=== PATIENT | male | born 1990 | race Caucasian/White ===

== ENCOUNTER 2017-06-19 11:49 | Emergency (ER) | payer BC, MEDICAID, SELFPAY ==
[2017-06-19 11:50] VITALS: BP 142/87; PULSE 81; RESP 16; TEMP 37.3; O2SAT 99; BMI 20.1
--- NOTE | 2017-06-19 12:21 | RAD_ITS ---
STUDY: X-RAY - LEFT HAND REASON FOR EXAM: Male, 26 years old. Pain of the fifth metacarpal following injury. TECHNIQUE: 3 view(s) of the hand. COMPARISON: None. FINDINGS: Normal radiocarpal articulation. Normal distal radioulnar joint. Normal visualized carpal bones. Normal carpal articulations Normal carpometacarpal articulation of the thumb. Normal second through fifth carpometacarpal joints. Nondisplaced transverse fracture through the midportion of the fifth metacarpal with mild dorsal angulation. Normal metacarpophalangeal joint of the thumb. Normal interphalangeal joint of the thumb. Normal proximal and distal phalanges of the thumb. Normal metacarpophalangeal joints of the second through fifth fingers. Normal proximal and distal interphalangeal joints of the second through fifth fingers. Normal phalanges of the second through fifth fingers. Soft tissue swelling. RAD/Hand Min 3 Views IMPRESSION: Nondisplaced transverse fracture in the midportion of the fifth metacarpal with mild dorsal angulation and overlying soft tissue swelling. Electronically Signed: Patrick Sherwood MD at 12:43 EST Tel [phone], Service support ,
--- NOTE | 2017-06-19 13:16 | ED.DCSUM_ITS ---
- ER Visit Summary Date of Service: 06/19/17 Chief Complaint: [Injury left hand] History of Present Illness: The patient is a 26 M [presents the emergency department with an injury of his left hand that occurred this morning after he was upset and punched a wall with his left hand. Patient is left-hand dominant. Patient denies any other injuries. Patient denies prior fractures of that hand.] Physical Examination: [Left hand-patient has soft tissue swelling over the dorsum of the fifth metacarpal with ecchymosis noted. Patient has decreased ability to completely extend the left small finger and ring finger. He is neurovascular intact with normal station and cap refill.] Test Results: [X-rays of the left hand obtained showed a fracture through the midportion of the fifth metacarpal] Emergency Department Course and Treatment: [Patient was placed in an ulnar gutter splint and given a sling.] Treatment Plan: [Patient will be given a prescription for [place] for pain and instructed to ice and elevate extremity. Patient will be given work restrictions.] Disposition: [Discharged to home in stable condition. Patient will be referred to Dr. Cesar Billingsley who is on-call for orthopedics for follow-up in 3-5 days.] Impression: [Fracture left hand fifth metacarpal] This note was generated with [employer] dictation software. It may contain incorrect words, spelling, and punctuation that were not noted in review of the chart prior to signing ED Disposition - Plan for ED Patient: Chief Complaint: Upper Extremity Injury Referrals: Gurdeep Lowery MD [Primary Care Provider] -
--- NOTE | 2017-06-19 13:18 | DCINST.ED_ITS ---
ED Disposition - Plan for ED Patient: Chief Complaint: Upper Extremity Injury Instructions: ED Fx Boxer Prescriptions: Hydrocodone Bitart/Apap 5-325 [[place] 5/325] 1 - 2 tab PO Q4H PRN PRN 5 Days #20 tab PRN Reason: Pain Referrals: Gurdeep Lowery MD [Primary Care Provider] - Rajesh Billingsley MD [STAFF PHYSICIAN] - 3-5 Days
[2017-06-19 13:40] VITALS: BP 140/88
--- NOTE | 2017-06-19 13:40 | ED.RN ---
Work note given for no left hand/arm duties, no repetitive motion to left arm until f/y with ortho.
--- NOTE | 2017-06-19 13:41 | ED.RN ---
Pt states he doesn't drive and is off work until Friday.
== END 2017-06-19 13:41 | disposition home or self-care (01) ==
PROVIDERS: Emergency Provider Emergency Medicine; Family Provider Pediatrics; PCP Pediatrics
DX: S62.397A Other fracture of fifth metacarpal bone, left hand, initial encounter for closed fracture (principal); W22.8XXA Striking against or struck by other objects, initial encounter; Y93.89 Activity, other specified; Y92.9 Unspecified place or not applicable; Z72.0 Tobacco use
CPT/HCPCS: 29125; 73130; 99283

== ENCOUNTER 2017-11-26 23:42 | Emergency (ER) | payer BC, MEDICAID, SELFPAY ==
[2017-11-26 23:44] VITALS: BP 143/86; PULSE 99; RESP 18; TEMP 36.6; O2SAT 98; BMI 20.4
[2017-11-27] MEDS: Diphth,Pertuss(Acell),Tet Vac 0.5 ML Vial IM (00:07)
--- NOTE | 2017-11-27 00:19 | ED.DCSUM_ITS ---
- ER Visit Summary Date of Service: 11/27/17 Chief Complaint: Laceration History of Present Illness: The patient is a 27 M who cut his left hand when washing dishes today. Unsure of tetanus status. No other injuries. Physical Examination: There is a 1 cm laceration on his left hand at the radial side of the index finger MCP joint. He is neurovascular intact distally. Good extension and flexion. Joint is not involved. Test Results: None indicated Emergency Department Course and Treatment: Wound was anesthetized locally. Cleaned and explored. Closed with 3 simple interrupted sutures. He was given wound care instructions. Return for signs of infection. Follow-up in about 10 days for suture removal. Tetanus updated Treatment Plan: As above Disposition: Discharged Impression: 1. Laceration to left hand 1 cm This note was generated with [employer] dictation software. It may contain incorrect words, spelling, and punctuation that were not noted in review of the chart prior to signing ED Disposition - Plan for ED Patient: Chief Complaint: Laceration Referrals: Gurdeep Lowery MD [Primary Care Provider] -
--- NOTE | 2017-11-27 00:19 | ED.DEP ---
ED Disposition - Plan for ED Patient: Chief Complaint: Laceration Instructions: ED Laceration Hand Referrals: Gurdeep Lowery MD [Primary Care Provider] -
--- NOTE | 2017-11-27 00:28 | ED.RN ---
pt given written and verbal discharge instructions. pt reports understanding. wound covered with bacitracin and a bandaid. pt tolerated well. ambulatory out of dept with friends.
== END 2017-11-27 00:32 | disposition home or self-care (01) ==
LOC: ED 11-27 00:19
PROVIDERS: Emergency Provider Emergency Medicine; Family Provider Pediatrics; PCP Pediatrics
DX: S61.211A Laceration without foreign body of left index finger without damage to nail, initial encounter (principal); W45.8XXA Other foreign body or object entering through skin, initial encounter; Y93.89 Activity, other specified; Y92.9 Unspecified place or not applicable; Y99.9 Unspecified external cause status; Z72.0 Tobacco use
CPT/HCPCS: 12001; 90471; 90715; 99283

== ENCOUNTER 2017-12-02 00:05 | Emergency (ER) | payer BC, MEDICAID, SELFPAY ==
[2017-12-02 00:06] VITALS: BP 141/77; PULSE 120; RESP 18; TEMP 37.2; O2SAT 97
--- NOTE | 2017-12-02 00:21 | RAD_ITS ---
STUDY: X-RAY - LEFT HAND REASON FOR EXAM: Male, 27 years old. Pain fifth metatarsal after punching refrigerator. TECHNIQUE: 3 view(s) of the hand. COMPARISON: June 19, 2017 FINDINGS: Normal radiocarpal articulation. Normal distal radioulnar joint. Normal visualized carpal bones. Normal carpal articulations Normal carpometacarpal articulation of the thumb. Normal second through fifth carpometacarpal joints. There is a transverse mildly displaced fracture mid shaft of the fifth metacarpal with apex dorsal medial angulation. On the prior exam there was a fracture in this same location. On the present exam there is thickening of the cortex medial aspect of the mid shaft suggestive of healing. The present findings probably represent a new fracture through an area healed fracture. Normal metacarpophalangeal joint of the thumb. Normal interphalangeal joint of the thumb. Normal proximal and distal phalanges of the thumb. Normal metacarpophalangeal joints of the second through fifth fingers. Normal proximal and distal interphalangeal joints of the second through fifth fingers. Normal phalanges of the second through fifth fingers. The soft tissue structures are unremarkable. RAD/Hand Min 3 Views IMPRESSION: Transverse fracture midshaft of the fifth metacarpal. The fracture is in the same location as a fracture noted on the study of May 2017. The findings either represent a new fracture at the same site or an incompletely healed old fracture. Electronically Signed: Jim Rubin MD at 1:38 EDT , Service support ,
--- NOTE | 2017-12-02 03:00 | ED.RN ---
EXPLAINED TO PT AND S.O. THAT THE PHYSICIAN WOULD BE IN WITH THEM SOON HE COULD. INFORMED THEM THAT HE WAS TIED UP WITH A COUPLE CRITICAL PATIENT AND HE WAS WORKING ON GETTING IN TO SEE HIM. PT STATED HE HAD TO GO TO WORK. ALSO EXPLAINED THE IMPORTANCE OF HAVING HIS HAND SPLINTED. PT WASN'T CONCERNED. PT ENDED UP AMBULATING FROM ER WITHOUT TALKING TO ANYONE.
--- NOTE | 2017-12-02 04:45 | ED.VISSUMM ---
- ER Visit Summary Date of Service: 12/02/17 Chief Complaint: Patient presents with injury to left hand. History of Present Illness: The patient is a 27 M who is left-hand dominant presents with injury to his left hand after striking refrigerator. He was diagnosed with boxer fracture 2 months ago and seen by Dr. Cesar Billingsley. He denies any paresthesia, anesthesia buttocks. He complains of pain with movement of his ring and little finger. He has no other complaints. Physical Examination: There is pain palpation over the fifth metacarpal. There is no rotational malalignment of the left little or ring finger. Capillary refill is normal. Sensations intact. Extensor and flexor mechanism is intact. There is no pain the patient of the proximal, middle or distal phalanx third, fourth or fifth finger. Test Results: Three-view x-ray of the hand was obtained which reveals a transverse fracture midshaft fifth metacarpal with 15-20? dorsal apex angulation. Emergency Department Course and Treatment: X-ray was obtained to evaluate for fracture and to determine if reduction is required. Treatment Plan: Patient was informed he had a fracture. Patient was informed that a hematoma block was needed to anesthetize area for reduction and application of plaster splint. Patient was informed I was with multiple critical patients. In spite of this he left prior to application of splint. Disposition: Left prior to completion of treatment Impression: Transverse midshaft fifth metacarpal fracture with angulation This note was generated with [employer] dictation software. It may contain incorrect words, spelling, and punctuation that were not noted in review of the chart prior to signing ED Disposition - Plan for ED Patient: Disposition: Against Medical Advice Chief Complaint: Upper Extremity Injury Referrals: Gurdeep Lowery MD [Primary Care Provider] -
== END 2017-12-02 03:14 | disposition left against medical advice (07) ==
PROVIDERS: Emergency Provider Emergency Medicine; Family Provider Pediatrics; PCP Pediatrics
DX: S62.327A Displaced fracture of shaft of fifth metacarpal bone, left hand, initial encounter for closed fracture (principal); W22.8XXA Striking against or struck by other objects, initial encounter; Y93.89 Activity, other specified; Y92.9 Unspecified place or not applicable; Z53.21 Procedure and treatment not carried out due to patient leaving prior to being seen by health care provider; Z72.0 Tobacco use
CPT/HCPCS: 73130; 99281

== ENCOUNTER 2018-05-02 15:59 | Emergency (ER) | payer BC, MEDICAID, SELFPAY ==
[2018-05-02 16:00] VITALS: BP 140/80; PULSE 115; RESP 18; TEMP 36.8; O2SAT 100; BMI 22.0
--- NOTE | 2018-05-02 16:33 | ED.VISSUMM ---
- ER Visit Summary Date of Service: 05/02/18 Chief Complaint: Right thumb laceration History of Present Illness: The patient is a 27 M who cut his right thumb with a razor blade just prior to arrival. He is left-hand dominant. Tetanus is up-to-date. He does report some paresthesias to the right thumb which seem to be improving since the time of injury. Physical Examination: Vital signs significant only for heart rate of 115. Patient sitting upright in bed no acute distress. Right upper extremity examination reveals a 1.5 cm laceration at the base of the right thumb along the ulnar side. There is mild active bleeding. He has good cap refill distally and two-point discrimination is intact. Test Results: [] Emergency Department Course and Treatment: Digital block is performed with 3 cc 1% lidocaine. Wound is irrigated and skin is closed with 5 simple interrupted sutures of 5-0 nylon. Dressing is applied and wound care is discussed. Patient is to have sutures removed in 1 week. Treatment Plan: [] Disposition: Discharge Impression: Right thumb laceration status post suture This note was generated with [employer] dictation software. It may contain incorrect words, spelling, and punctuation that were not noted in review of the chart prior to signing ED Disposition - Plan for ED Patient: Chief Complaint: Laceration Referrals: Gurdeep Lowery MD [Primary Care Provider] -
--- NOTE | 2018-05-02 16:34 | ED.DEP ---
ED Disposition - Plan for ED Patient: Disposition: Home or Assisted Living Chief Complaint: Laceration Instructions: ED Laceration Hand Referrals: Kellie Reyes MD [STAFF PHYSICIAN] - 7 Days for suture removal
== END 2018-05-02 17:08 | disposition home or self-care (01) ==
LOC: ED 16:54
PROVIDERS: Emergency Provider Emergency Medicine
DX: S61.011A Laceration without foreign body of right thumb without damage to nail, initial encounter (principal); W26.8XXA Contact with other sharp object(s), not elsewhere classified, initial encounter; Z72.0 Tobacco use
CPT/HCPCS: 12001; 99282

== ENCOUNTER 2018-12-28 08:32 | Emergency (ER) | payer MEDICAID, SELFPAY ==
[2018-12-28 08:33] VITALS: BP 117/67; PULSE 105; RESP 16; TEMP 36.7; O2SAT 99; BMI 21.6
--- NOTE | 2018-12-28 08:56 | CT_ITS ---
STUDY: CT ABDOMEN AND PELVIS WITH CONTRAST REASON FOR EXAM: Male, 28 years old. Umbilical pain with nausea, vomiting and diarrhea x1 day. RADIATION DOSAGE (If Supplied By Facility): CTDIvol = ( 11.32 ) mGy, DLP = ( 474.94 ) mGycm TECHNIQUE: Transaxial 3.75 mm images were obtained from the dome of the diaphragm to the symphysis pubis with oral contrast. 100 IV/Oral Isovue 370 was administered. Sagittal and coronal images were reconstructed. Individualized dose optimization techniques were used for this CT. COMPARISON: None. FINDINGS: The visualized lung bases are unremarkable. The visualized portions of the heart are within normal limits. Normal liver. Normal gallbladder and extrahepatic biliary system. Normal spleen. Normal pancreas. Normal bilateral adrenal glands. Normal right kidney. Normal left kidney. Oral contrast is reaching the hepatic flexure. Normal visualized stomach. Normal small intestine. Normal colon. The appendix is visualized and appears normal. Image [id number] series 2. There are a few indistinct borderline sized mesenteric lymph nodes. Normal abdominal aorta. Normal inferior vena cava. Normal retroperitoneum. Normal urinary bladder. Normal abdominal wall. Normal osseous structures. CT/Abdomen/Pelvis WITH Contrast IMPRESSION: Possible mild mesenteric adenitis. There is no appendicitis, colitis, ascites, diverticulitis, abscess, collection, perforation or bowel obstruction. Electronically Signed: Kaylene Nogueira MD at 10:56 EDT , Service support ,
--- NOTE | 2018-12-28 08:57 | ED.VIS.GI ---
History of Present Illness Chief Complaint: Nausea/Vomiting Detail of Chief Complaint: n/v and abd pain Informant: Patient, Family - Abdominal Pain/Flank Pain Onset: Yesterday - around 12-13 hrs Context: Gradual Onset - after eating cottage cheese Timing: Continuous Quality: Aching Location: - - lower abd Current Severity: Moderate Maximum Severity: Moderate Worsened by: Food Relieved by: Nothing - Nausea/Vomiting/Emesis GI Symptom: Nausea, Vomiting Onset: Yesterday Quality: Nonbilious. Negative for: Blood streaks, Coffee ground, Hematemesis - Diarrhea/Melena/Hematochezia GI Symptom: Diarrhea. Negative for: Melena, Hematochezia Onset: Today - JPTA Associated Symptoms: Negative for: Dysuria, Frequency, Hematuria, Urgency Narrative: The day before yesterday, patient was drinking alcohol but stopped at 6 PM. He did not eat much all day yesterday, until 8 PM last night when he had some cottage cheese, then he felt sick and vomited, and started getting lower abdominal discomfort that progressed in severity to this morning. He had dry heaving for 15 or 20 minutes this morning and still feels nauseated. He has no upper abdominal discomfort, it is lower and more to the right. He does not think it has migrated. He denies any radiation into the back. No known fevers. He had a large bout of diarrhea that did not really help the pain just prior to arrival here. He is healthy otherwise and has had no prior abdominal surgeries. Past Medical History - Allergies and Home Meds Allergies/Adverse Reactions: Allergies Fish Containing Products Allergy (Verified 12/28/18 08:32) Anaphylaxis Penicillins Allergy (Verified 12/28/18 08:32) Hives Primary Care Physician: Care Physician,No Primary [Primary Care Provider] - Past Medical History: None Surgical History: no surgical history Smoking Status: Current every day smoker Alcohol: Occasional Drugs: None Review of Systems General: Reports: Malaise. Denies: Chills, Fever, Sweats Eyes: Denies: Visual changes - bilaterally, Diplopia ENT: Denies: Rhinorrhea, Sore throat Cardiovascular: Denies: Chest pain, Palpitations Respiratory: Denies: Dyspnea, Cough, Dyspnea on exertion Gastrointestinal: Reports: Abdominal pain, Nausea, Vomiting, Diarrhea. Denies: Melena, Hematochezia Genitourinary: Denies: Dysuria, Hematuria, Frequency Musculoskeletal: Denies: Back pain, Extremity Pain Skin: Denies: Rash, Wounds Neurological: Denies: Headache, Weakness, Numbness Physical Exam Vital Signs/Narrative: Vital Signs Temp Pulse Resp BP Pulse Ox 12/28/18 08:33 98.0 F 105 H 16 117/67 99 Inital Vital Signs reviewed: Yes General: Well nourished, Well developed, No Acute Distress Head: Normocephalic, Atraumatic Eyes: Perrl, EOMI ENT: Moist mucous membranes, No rhinorrhea Neck: Supple, Nontender Cardiovascular: Regular rate, Regular rhythm, No murmurs, Tachycardia - mild Respiratory: No distress, CTA bilaterally, Chest tenderness - Mild at lower-most bilateral ribs, worse on the right, anterior axillary line Abdomen: Soft, Nondistended, Normal bowel sounds, Tender - Right lower quadrant, somewhat distal and medial to McBurney's point, suprapubic. No other areas of abdominal tenderness.. Negative for: Guarding, Rebound tenderness, Psoas sign, Obturator sign, Rovsig's sign, López's sign Back: Nontender, Normal Inspection. Negative for: CVA tenderness Extremities: Nontender, No edema Skin: Normal color, No rash, No Trauma Neurological: Alert, Oriented x3, Cranial nerves II-XII grossly intact, Normal Strength, Normal Sensation Psychological: Normal affect, Normal Mood Diagnostic/Tx/Re-eval Impressions Abdomen/Pelvis CT 12/28/18 08:56 IMPRESSION: Possible mild mesenteric adenitis. There is no appendicitis, colitis, ascites, diverticulitis, abscess, collection, perforation or bowel obstruction. Electronically Signed: Kaylene Nogueira MD at 10:56 EDT , Service support , 12/28/18 08:56 Abdomen/Pelvis WITH Contrast [CT] Stat Laboratory Results 12/28/18 12/28/18 09:14 09:14 WBC 5.1 RBC 5.98 Hgb 18.1 H* Hct 53.0 MCV 88.6 MCH 30.3 MCHC 34.2 RDW Std Deviation 40.9 RDW Coeff of Fred 12.5 Plt Count 235 MPV 10.7 Immature Gran % (Auto) 0.200 Neut % (Auto) 73.9 H Lymph % (Auto) 15.2 L Kingfisher % (Auto) 9.7 Eos % (Auto) 0.6 Baso % (Auto) 0.4 Absolute Neuts (auto) 3.7 Absolute Lymphs (auto) 0.77 L Nucleated RBC % 0 [address] Path Review May foll Sodium 137 Potassium 3.8 Chloride 101 Carbon Dioxide 31.0 Anion Gap 5 BUN 20 H Creatinine 1.38 H Estim Creat Clear Calc 80.67 Est GFR (MDRD) Af Amer 80 Est GFR (MDRD) Non-Af 66 BUN/Creatinine Ratio 14.5 Glucose 124 H Calcium 9.5 Total Bilirubin 0.60 AST 16 ALT 22 Alkaline Phosphatase 68 Total Protein 7.9 Albumin 4.2 Globulin 3.7 Albumin/Globulin Ratio 1.1 - Medical Decision Making He has no leukocytosis, his hemoglobin is high possibly because of mild dehydration and the fact that he is a healthy 28-year-old. I obtained a CT with oral and IV contrast because he is thin, to rule out appendicitis, it is negative for appendicitis or any other emergent abdominal condition, the interpretation is possible mild mesenteric adenitis. At this time I think the patient is stable for discharge home and symptom control, which we did here as well. He is comfortable with that plan. He has no PCP. Referred to the next doctor on the list, Dr. Serrano. ED Disposition - Plan for ED Patient: Disposition: Home or Assisted Living Diagnosis: Mesenteric adenitis Instructions: Adenitis, Mesenteric Prescriptions: traMADol [Ultram] 50 mg PO Q4H PRN PRN 3 Days #12 tab PRN Reason: Pain Prescription Printed Ondansetron [Zofran] 8 mg PO Q8H PRN PRN #12 tab PRN Reason: Nausea Prescription Printed Referrals: Patrick Serrano DO [STAFF PHYSICIAN] - 1 Week if not improving
[2018-12-28] MEDS: 0.9% Normal Saline 1,000 ML 1000 ML IV (09:13)
[2018-12-28] MEDS: Ondansetron 4 MG/2 ML Vial IV (09:14)
[2018-12-28] MEDS: Ketorolac 30 MG/ML Syringe 15 MG IV (09:14)
[2018-12-28 09:29] LABS: Absolute Lymphocyte Count 0.77 X10^3/uL (0.83-4.51); Absolute Neutrophil Count 3.7 X10^3/uL (2.0-7.7); Basophil# 0.02 X10^3/uL; Basophil% 0.4 % (0-1); Eosinophil# 0.03 X10^3/uL; Eosinophils% 0.6 % (0-5); Lymphocyte # 0.77 X10^3/ul (4.0); Lymphocyte % 15.2 % (19-41); Mean Corp Hgb Conc 34.2 g/dL (32-36); Mean Corpuscular Hgb 30.3 pg (27.0-32.0); Mean Corpuscular Volume 88.6 fL (80-94); Mean Platelet Vol. 10.7 fl (6.2-12.0); Monocyte# 0.49 X10^3/uL; Monocyte% 9.7 % (0-10); NRBC Flagged by Analyzer 0 % (0-5); Neutrophil # 3.73 X10^3/uL (2.7-7.7); Neutrophil % 73.9 % (47-70); Platelet Count 235 K/mm3 (150-450); RBC Distribution Width CV 12.5 % (11.6-14.6); RBC Distribution Width SD 40.9 fl (35.1-43.9); Red Blood Count 5.98 M/mm3 (4.6-6.2); White Blood Count 5.1 K/mm3 (4.4-11.0)
[2018-12-28 09:34] LABS: Hemoglobin 18.1 g/dL (13.0-16.5)
--- NOTE | 2018-12-28 09:39 | ED.RN ---
lab called zaira peraza 18.[address] french made aware, pt has no further needs at this time.
[2018-12-28 09:40] LABS: ALB/GLOB Ratio 1.1 RATIO (0.9-2.4); AST(SGOT) 16 U/L (15-37); Alanine Aminotransfer ALT/SGPT 22 U/L (16-61); Albumin, Serum 4.2 g/dL (3.2-5.0); Alkaline Phosphatase 68 U/L (45-117); Anion Gap 5 (5-15); BUN 20 mg/dL (7-18); BUN/Creat Ratio 14.5 RATIO (10-20); Calcium,Total 9.5 mg/dL (8.5-10.1); Chloride 101 mmol/L (98-107); Creatinine, Serum 1.38 mg/dL (0.70-1.30); EST Glomerular Filtration Rate 66 mL/min (>60); Est Glom Filt Rate - Afr Amer 80 mL/min (>60); Estimated Creatinine Clearance 80.67 ml/min; Globulin 3.7 g/dL (2.2-4.2); Glucose 124 mg/dL (74-106); Potassium 3.8 mmol/L (3.5-5.1); Protein, Total 7.9 g/dL (6.4-8.2); Sodium Level 137 mmol/L (136-145)
[2018-12-28 11:15] VITALS: RESP 18
[2018-12-28 11:24] LABS: Bacteria 0 SEEN /hpf (None Seen); Mucous, Urine 0 SEEN /hpf (<or=2+); Red Blood Cells-Urine 0 SEEN /hpf (0-5); Squamous Epithelial Cells - UA 0 SEEN /hpf (0-5); White Blood Cells 0 SEEN /hpf (0-5)
[2018-12-28 11:25] LABS: Color, Urine Yellow (Yellow); Glucose, Dipstick Normal (Normal); Ketone-Dipstick Negative (Negative); Leukocyte Esterase-Dipstick Negative /ul (Negative); Nitrite-Dipstick Negative (Negative); Occult Blood-Urine Negative /ul (Negative); Protein-Dipstick 30 mg/dl (Negative); Specific Gravity, Urine 1.005 (1.002-1.030); Urine Bilirubin Dipstick Negative (Negative); Urine Clarity Clear (Clear); Urine Urobilinogen 1 mg/dl (Normal)
[2018-12-29 12:32] LABS: Pathologist Review Reviewed
== END 2018-12-28 12:22 | disposition home or self-care (01) ==
PROVIDERS: Emergency Provider Emergency Medicine
DX: I88.0 Nonspecific mesenteric lymphadenitis (principal); F17.200 Nicotine dependence, unspecified, uncomplicated
CPT/HCPCS: 74177; 80053; 81001; 85025; 96361; 96374; 96375; 99284; J7030; Q9967; A4216; J2405

== ENCOUNTER 2019-01-05 09:58 | Emergency (ER) | payer BC, MEDICAID, SELFPAY ==
[2019-01-05 10:01] VITALS: BP 129/87; PULSE 97; RESP 16; TEMP 36.5; O2SAT 98; BMI 21.6
--- NOTE | 2019-01-05 10:14 | ED.DCSUM_ITS ---
History of Present Illness Chief Complaint: Abd Pain Informant: Patient Onset: Days Context: Gradual Onset Timing: Continuous Current Severity: Moderate Maximum Severity: Moderate Narrative: The patient presents to the emergency department with abdominal pain diarrhea. Patient was seen here 8 days ago. At that point, he was having abdominal cramping that had migrated to his right lower quadrant. He had labs done which showed mild dehydration. His CT shows no evidence of acute appendicitis, but did have some mesenteric adenitis. He states he felt better for a few days, but then the symptoms came back. He states he is continuing to have diarrhea and abdominal cramping. He states he will get spasms through his abdomen that almost doubled him over. He denies any fevers, chills, weight loss, night sweats. He is otherwise been in his normal state of health. He denies any recent travel. Prior similar symptoms: Yes Recent Illness/Hospitalization: No Past Medical History - Allergies and Home Meds Allergies/Adverse Reactions: Allergies Fish Containing Products Allergy (Verified 01/05/19 10:01) Anaphylaxis Penicillins Allergy (Verified 01/05/19 10:01) Mya Primary Care Physician: Care Physician,No Primary [Primary Care Provider] - Prior records reviewed: Yes Past Medical History: None Surgical History: no surgical history Smoking Status: Current every day smoker Review of Systems General: Denies: Chills, Fever, Sweats Eyes: Denies: Visual changes - bilaterally, Diplopia ENT: Denies: Rhinorrhea, Sore throat Cardiovascular: Denies: Chest pain, Palpitations Respiratory: Denies: Dyspnea, Cough, Dyspnea on exertion Gastrointestinal: Reports: Abdominal pain, Diarrhea. Denies: Nausea, Vomiting, Melena, Hematochezia Genitourinary: Denies: Dysuria, Hematuria, Frequency Musculoskeletal: Denies: Back pain, Extremity Pain Skin: Denies: Rash, Wounds Neurological: Denies: Headache, Weakness, Numbness Physical Exam Vital Signs/Narrative: Vital Signs Temp Pulse Resp BP Pulse Ox 01/05/19 10:01 97.7 F L 97 16 129/87 H 98 Inital Vital Signs reviewed: Yes General: Well nourished, Well developed, No Acute Distress Head: Normocephalic, Atraumatic Eyes: Perrl, EOMI ENT: Moist mucous membranes, No rhinorrhea Neck: Supple, Nontender Cardiovascular: Regular rate, Regular rhythm, No murmurs Respiratory: No distress, CTA bilaterally, Chest nontender Abdomen: Soft, Nondistended, Normal bowel sounds, Tender - Suprapubic area without rebound or guarding. No peritoneal signs.. Negative for: Guarding, Rebound tenderness, Hyperactive bowel sounds Back: Nontender, Normal Inspection Extremities: Nontender, No edema Skin: Normal color, No rash Neurological: Alert, Oriented x3, Cranial nerves II-XII grossly intact, Normal Strength, Normal Sensation Psychological: Normal affect, Normal Mood Diagnostic/Tx/Re-eval Abnormal Lab Results 01/05/19 01/05/19 10:25 10:25 WBC 5.6 RBC 5.93 Hgb 17.8 H Hct 52.9 MCV 89.2 MCH 30.0 MCHC 33.6 RDW Std Deviation 42.4 RDW Coeff of Fred 13.0 Plt Count 419 MPV 9.9 Immature Gran % (Auto) 0.200 Neut % (Auto) 54.4 Lymph % (Auto) 32.5 Sawyer % (Auto) 10.4 H Eos % (Auto) 2.0 Baso % (Auto) 0.5 Absolute Neuts (auto) 3.1 Absolute Lymphs (auto) 1.82 Nucleated RBC % 0 Sodium 139 Potassium 4.4 Chloride 103 Carbon Dioxide 30.0 Anion Gap 6 BUN 11 Creatinine 1.37 H Estim Creat Clear Calc 81.26 Est GFR (MDRD) Af Amer 81 Est GFR (MDRD) Non-Af 67 BUN/Creatinine Ratio 8.0 L Glucose 99 Calcium 10.3 H Total Bilirubin 1.40 H AST 19 ALT 33 Alkaline Phosphatase 62 Total Protein 8.2 Albumin 4.4 Globulin 3.8 Albumin/Globulin Ratio 1.2 - Medical Decision Making The patient presents to the emergency department with persistent cramping. He is not tender over McBurney's point. He has a negative López sign also. States the pain comes in waves. IV was established. Labs were obtained. His creatinine is unchanged. Otherwise, screening labs are unremarkable. I really do not feel that repeat imaging is necessary. My only concern is that the patient has had these symptoms for 10 days now with persistent diarrhea. He has not had a fever. I do feel that the most prudent thing would be to treat him with 3 days of Cipro and antispasmodics. Patient was counseled concerning symptoms and reasons to return. He will be discharged home. 1. Diarrhea 2. Abdominal cramping ED Disposition - Plan for ED Patient: Instructions: TRAVELER'S DIARRHEA (8y-Adult) Prescriptions: Dicyclomine HCl [Bentyl] 20 mg PO TIDAC #20 cap Prescription Printed Ciprofloxacin [Cipro] 500 mg PO BID #6 tab Prescription Printed Referrals: Care Physician,No Primary [Primary Care Provider] -
[2019-01-05] MEDS: 0.9% Normal Saline 1,000 ML 1000 ML IV (10:37)
[2019-01-05] MEDS: Ondansetron 4 MG/2 ML Vial IV (10:39)
[2019-01-05] MEDS: Ketorolac 15 MG/ML Vial IV (10:39)
[2019-01-05 10:40] LABS: Absolute Lymphocyte Count 1.82 X10^3/uL (0.83-4.51); Absolute Neutrophil Count 3.1 X10^3/uL (2.0-7.7); Basophil# 0.03 X10^3/uL; Basophil% 0.5 % (0-1); Eosinophil# 0.11 X10^3/uL; Hematocrit 52.9 % (40-54); Hemoglobin 17.8 g/dL (13.0-16.5); Lymphocyte # 1.82 X10^3/ul (4.0); Lymphocyte % 32.5 % (19-41); Mean Corp Hgb Conc 33.6 g/dL (32-36); Mean Corpuscular Volume 89.2 fL (80-94); Mean Platelet Vol. 9.9 fl (6.2-12.0); Monocyte# 0.58 X10^3/uL; Monocyte% 10.4 % (0-10); NRBC Flagged by Analyzer 0 % (0-5); Neutrophil # 3.05 X10^3/uL (2.7-7.7); Neutrophil % 54.4 % (47-70); Platelet Count 419 K/mm3 (150-450); RBC Distribution Width SD 42.4 fl (35.1-43.9); Red Blood Count 5.93 M/mm3 (4.6-6.2); White Blood Count 5.6 K/mm3 (4.4-11.0)
[2019-01-05 11:00] VITALS: TEMP 36.5
[2019-01-05 11:03] LABS: ALB/GLOB Ratio 1.2 RATIO (0.9-2.4); AST(SGOT) 19 U/L (15-37); Alanine Aminotransfer ALT/SGPT 33 U/L (16-61); Albumin, Serum 4.4 g/dL (3.2-5.0); Alkaline Phosphatase 62 U/L (45-117); Anion Gap 6 (5-15); BUN 11 mg/dL (7-18); Calcium,Total 10.3 mg/dL (8.5-10.1); Chloride 103 mmol/L (98-107); Creatinine, Serum 1.37 mg/dL (0.70-1.30); EST Glomerular Filtration Rate 67 mL/min (>60); Est Glom Filt Rate - Afr Amer 81 mL/min (>60); Estimated Creatinine Clearance 81.26 ml/min; Globulin 3.8 g/dL (2.2-4.2); Glucose 99 mg/dL (74-106); Potassium 4.4 mmol/L (3.5-5.1); Protein, Total 8.2 g/dL (6.4-8.2); Sodium Level 139 mmol/L (136-145)
[2019-01-05 11:51] LABS: Bacteria 0 SEEN /hpf (None Seen); Mucous, Urine 0 SEEN /hpf (<or=2+); Red Blood Cells-Urine 0 SEEN /hpf (0-5); Squamous Epithelial Cells - UA 0 SEEN /hpf (0-5)
[2019-01-05 11:54] LABS: Color, Urine Yellow (Yellow); Glucose, Dipstick Normal (Normal); Ketone-Dipstick 5 mg/dl (Negative); Leukocyte Esterase-Dipstick 25 /ul (Negative); Nitrite-Dipstick Negative (Negative); Occult Blood-Urine Negative /ul (Negative); Protein-Dipstick 30 mg/dl (Negative); Urine Bilirubin Dipstick Negative (Negative); Urine Clarity Sl. Cloudy (Clear); Urine Urobilinogen 4 mg/dl (Normal)
[2019-01-05 12:02] LABS: White Blood Cells 0-5 SEEN /hpf (0-5)
[2019-01-05 12:03] LABS: Amorphous Sediment 1+ PHOS
[2019-01-05 12:23] VITALS: BP 124/70; PULSE 78; RESP 16; O2SAT 99
== END 2019-01-05 12:51 | disposition home or self-care (01) ==
LOC: ED 10:53
PROVIDERS: Emergency Provider Emergency Medicine
DX: R10.9 Unspecified abdominal pain (principal); R19.7 Diarrhea, unspecified; F17.200 Nicotine dependence, unspecified, uncomplicated
CPT/HCPCS: 80053; 81001; 85025; 96361; 96374; 96375; 99284; J7030; A4216; J2405

== ENCOUNTER 2019-05-20 16:49 | Emergency (ER) | payer SELFPAY ==
[2019-05-20 16:50] VITALS: BP 155/72; PULSE 91; RESP 18; TEMP 36.8; O2SAT 99; BMI 21.8
--- NOTE | 2019-05-20 17:17 | ED.DCSUM_ITS ---
History of Present Illness Chief Complaint: Flank Pain Informant: Patient Onset: Month(s) - 2 Context: Gradual Onset Injury: - - unknown; no known major injury Timing: Continuous Quality: Aching Location: Lumbar Current Severity: Moderate Maximum Severity: Severe Worsened by: improves with: Movement, Bending Relieved by: Remaining Still Associated Symptoms: - - brown urine 1-2 weeks ago transiently Narrative: Patient has been having this pain in both paraspinal upper-mid lumbar areas for 2 months. Hurts to move. 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 Does not remember being acutely injured, nor did the pain start suddenly that he can recall. He had a visit at urgent care for this last night, and they did a urinalysis which showed a trace amount of blood and protein and so he was advised to come to the ER for further work-up by the nurse practitioner. He states he occasionally took some ibuprofen for this and noticed no major changes, same with Flexeril. There is no radiation into the lower extremities, there is no abdominal or chest discomfort/symptoms. He urinated brown discolored urine a couple weeks ago but that resolved and he has no trouble with urination now. He has not been swelling in his legs or having any trouble breathing. He denies any bowel or bladder dysfunction or numbness anywhere. Past Medical History - Allergies and Home Meds Allergies/Adverse Reactions: Allergies Fish Containing Products Allergy (Verified 05/20/19 16:49) Anaphylaxis Penicillins Allergy (Verified 05/20/19 16:49) Hives Primary Care Physician: Orlando Lawrence MD [STAFF PHYSICIAN] - (call for appt) Surgical History: no surgical history Lives: Alone Smoking Status: Current every day smoker Review of Systems General: Denies: Chills, Fever, Sweats Eyes: Denies: Visual changes - bilaterally, Diplopia ENT: Denies: Rhinorrhea, Sore throat Cardiovascular: Denies: Chest pain, Palpitations Respiratory: Denies: Dyspnea, Cough, Dyspnea on exertion Gastrointestinal: Denies: Abdominal pain, Nausea, Vomiting, Diarrhea, Melena, Hematochezia Genitourinary: Denies: Dysuria, Hematuria, Frequency Musculoskeletal: Reports: Back pain. Denies: Myalgias, Arthralgias, Neck pain, Swelling, Extremity Pain Skin: Denies: Rash, Wounds Neurological: Denies: Headache, Weakness, Numbness Physical Exam Vital Signs/Narrative: Vital Signs Temp Pulse Resp BP Pulse Ox 05/20/19 16:50 98.2 F 91 18 155/72 H 99 Inital Vital Signs reviewed: Yes General: Well nourished, Well developed Head: Normocephalic, Atraumatic Eyes: Perrl, EOMI ENT: Moist mucous membranes, No rhinorrhea Neck: Supple, Nontender, No lymphadenopathy Abdomen: Soft, Nontender, Nondistended, Normal bowel sounds, No masses Back: Normal Inspection, Paraspinal Tenderness - bilat, throughout lumbar area; nontender below pelvic brim.. Negative for: Spinal tenderness, CVA tenderness Extremeties: Nontender, No edema Skin: Normal color, No rash, No Trauma Neuro: Alert, Oriented, Normal Strength, Normal Sensation, Normal Gait, Normal Reflexes Psychological: Normal affect, Normal Mood Diagnostic/Tx/Re-eval Laboratory Tests 05/20/19 05/20/19 05/20/19 Range/Units 17:40 17:40 17:25 WBC 7.6 (4.4-11.0) K/mm3 RBC 5.26 (4.6-6.2) M/mm3 Hgb 15.8 (13.0-16.5) g/dL Hct 46.0 (40-54) % MCV 87.5 (80-94) fL MCH 30.0 (27.0-32.0) pg MCHC 34.3 (32-36) g/dL RDW Std Deviation 39.4 (35.1-43.9) fl RDW Coeff of Fred 12.3 (11.6-14.6) % Plt Count 287 (150-450) K/mm3 MPV 11.0 (6.2-12.0) fl Immature Gran % (Auto) 0.400 (0.0-0.9) % Neut % (Auto) 66.8 (47-70) % Lymph % (Auto) 24.8 (19-41) % Aurora % (Auto) 6.2 (0-10) % Eos % (Auto) 1.4 (0-5) % Baso % (Auto) 0.4 (0-1) % Absolute Neuts (auto) 5.1 (2.0-7.7) X10^3/uL Absolute Lymphs (auto) 1.89 (0.83-4.51) X10^3/uL Nucleated RBC % 0 (0-5) % Sodium 138 (136-145) mmol/L Potassium 4.4 (3.5-5.1) mmol/L Chloride 105 (98-107) mmol/L Carbon Dioxide 29.0 (21.0-32.0) mmol/L Anion Gap 4 L (5-15) BUN 22 H (7-18) mg/dL Creatinine 1.19 (0.70-1.30) mg/dL Estim Creat Clear Calc 91.73 ml/min Est GFR (MDRD) Af Amer 95 (>60) mL/min Est GFR (MDRD) Non-Af 78 (>60) mL/min BUN/Creatinine Ratio 18.5 (10-20) RATIO Glucose 105 (74-106) mg/dL Calcium 9.3 (8.5-10.1) mg/dL Total Bilirubin 0.30 (0.20-1.00) mg/dL AST 37 (15-37) U/L ALT 31 (16-61) U/L Alkaline Phosphatase 54 (45-117) U/L Total Protein 7.6 (6.4-8.2) g/dL Albumin 4.1 (3.2-5.0) g/dL Globulin 3.5 (2.2-4.2) g/dL Albumin/Globulin Ratio 1.2 (0.9-2.4) RATIO Urine Color Yellow (Yellow) Urine Clarity Sl. Cloudy (Clear) Urine pH 6.0 (5.0 - 8.0) Ur Specific [place] 1.015 (1.002-1.030) Urine Protein Negative (Negative) mg/dl Urine Glucose (UA) Normal (Normal) mg/dl Urine Ketones Negative (Negative) mg/dl Urine Occult Blood Negative (Negative) /ul Urine Nitrite Negative (Negative) Urine Bilirubin Negative (Negative) mg/dL Urine Urobilinogen Normal (Normal) mg/dl Ur Leukocyte Esterase Negative (Negative) /ul Urine RBC 0 SEEN (0-5) /hpf Urine WBC 0 SEEN (0-5) /hpf Ur Squamous Epith Cells 0-5 SEEN (0-5) /hpf Urine Bacteria 0 SEEN (None Seen) /hpf Urine Mucus 0 SEEN (<or=2+) /hpf - Medical Decision Making I repeated the patient's urinalysis, has he brought one from an urgent care performed yesterday that showed small amount of blood and protein. Are shows none of that today and is normal. Also because of that I obtained some basic labs, they are also normal. I reassured the patient I do not think this is an internal problem or kidney issue, I think it is musculoskeletal. I gave him injections of Toradol and Norflex, he states it did not make a big difference. We discussed ways to lift without invoking his back muscles as much, and following up with PCP which he does not have and is referred to the next doctor on the unassigned list, physical therapy, and/or chiropractic. I will place him on prescription anti-inflammatories to take regularly for the next 10 days in addition to muscle relaxers to use as needed, will keep him away from Flexeril since it really did not help and try different 1. ED Disposition - Plan for ED Patient: Disposition: Home or Assisted Living Diagnosis: Musculoskeletal back pain Instructions: Self-Care for Low Back Pain, BACK PAIN (Acute or Chronic) Prescriptions: Naproxen [Naprosyn] 500 mg PO BID #20 tab Prescription Printed Metaxalone [Skelaxin] 800 mg PO TID PRN #21 tab PRN Reason: Muscle Spasm Prescription Printed Referrals: Orlando Lawrence MD [STAFF PHYSICIAN] - (call for appt)
[2019-05-20 17:39] LABS: Bacteria 0 SEEN /hpf (None Seen); Mucous, Urine 0 SEEN /hpf (<or=2+); Red Blood Cells-Urine 0 SEEN /hpf (0-5); White Blood Cells 0 SEEN /hpf (0-5)
[2019-05-20] MEDS: Ketorolac 60 MG/2 ML Vial IM (17:40)
[2019-05-20] MEDS: Orphenadrine 60 MG/2 ML Ampul IM (17:40)
[2019-05-20 17:47] LABS: Color, Urine Yellow (Yellow); Glucose, Dipstick Normal (Normal); Ketone-Dipstick Negative (Negative); Leukocyte Esterase-Dipstick Negative /ul (Negative); Nitrite-Dipstick Negative (Negative); Occult Blood-Urine Negative /ul (Negative); Protein-Dipstick Negative (Negative); Specific Gravity, Urine 1.015 (1.002-1.030); Urine Bilirubin Dipstick Negative (Negative); Urine Clarity Sl. Cloudy (Clear); Urine Urobilinogen Normal (Normal)
[2019-05-20 18:06] LABS: Absolute Lymphocyte Count 1.89 X10^3/uL (0.83-4.51); Absolute Neutrophil Count 5.1 X10^3/uL (2.0-7.7); Basophil# 0.03 X10^3/uL; Basophil% 0.4 % (0-1); Eosinophil# 0.11 X10^3/uL; Eosinophils% 1.4 % (0-5); Hemoglobin 15.8 g/dL (13.0-16.5); Lymphocyte # 1.89 X10^3/ul (4.0); Lymphocyte % 24.8 % (19-41); Mean Corp Hgb Conc 34.3 g/dL (32-36); Mean Corpuscular Volume 87.5 fL (80-94); Monocyte# 0.47 X10^3/uL; Monocyte% 6.2 % (0-10); NRBC Flagged by Analyzer 0 % (0-5); Neutrophil % 66.8 % (47-70); Platelet Count 287 K/mm3 (150-450); RBC Distribution Width CV 12.3 % (11.6-14.6); RBC Distribution Width SD 39.4 fl (35.1-43.9); Red Blood Count 5.26 M/mm3 (4.6-6.2); White Blood Count 7.6 K/mm3 (4.4-11.0)
[2019-05-20 18:11] LABS: Squamous Epithelial Cells - UA 0-5 SEEN /hpf (0-5)
[2019-05-20 18:24] LABS: ALB/GLOB Ratio 1.2 RATIO (0.9-2.4); AST(SGOT) 37 U/L (15-37); Alanine Aminotransfer ALT/SGPT 31 U/L (16-61); Albumin, Serum 4.1 g/dL (3.2-5.0); Alkaline Phosphatase 54 U/L (45-117); Anion Gap 4 (5-15); BUN 22 mg/dL (7-18); BUN/Creat Ratio 18.5 RATIO (10-20); Calcium,Total 9.3 mg/dL (8.5-10.1); Chloride 105 mmol/L (98-107); Creatinine, Serum 1.19 mg/dL (0.70-1.30); EST Glomerular Filtration Rate 78 mL/min (>60); Est Glom Filt Rate - Afr Amer 95 mL/min (>60); Estimated Creatinine Clearance 91.73 ml/min; Globulin 3.5 g/dL (2.2-4.2); Glucose 105 mg/dL (74-106); Potassium 4.4 mmol/L (3.5-5.1); Protein, Total 7.6 g/dL (6.4-8.2); Sodium Level 138 mmol/L (136-145)
== END 2019-05-20 18:46 | disposition home or self-care (01) ==
PROVIDERS: Emergency Provider Emergency Medicine
DX: M54.5 Low back pain (principal); F17.200 Nicotine dependence, unspecified, uncomplicated
CPT/HCPCS: 80053; 81001; 85025; 96372; 99283; A4216

== ENCOUNTER 2019-08-08 18:14 | Emergency (ER) | payer SELFPAY ==
[2019-08-08 18:16] VITALS: BP 130/96; PULSE 86; RESP 20; TEMP 35.7; O2SAT 96; BMI 21.4
--- NOTE | 2019-08-08 18:28 | ED.DCSUM_ITS ---
- ER Visit Summary Date of Service: 08/08/19 Chief Complaint: [Injury to left hand] History of Present Illness: The patient is a 28 M [presents to the emergency department with an injury to his left hand that occurred yesterday. Patient states that he found out his was cheating on him and he got angry and punched a wall. Patient is left-hand dominant. Patient states he has broken the left hand 2 other times. He has no medical history.] Patient up-to-date on tetanus. Physical Examination: [HEENT-PERRLA, EOMI. Cranial nerves II through XII grossly intact. TMs clear. Mucous membranes moist. No adenopathy. Cardiovascular-regular rate and rhythm without murmur or ectopy Lungs-clear to auscultation, chest wall stable without crepitus or subcu emphysema Abdomen-normoactive bowel sounds, soft, nontender, no rebound or rigidity, no peritoneal signs. Extremities-intact ?4, normal range of motion, normal pulses. Left hand-patient has tenderness to palpation over the fifth metacarpal with obvious soft tissue swelling noted. He does have good range of motion flexion extension of all digits. He is got some superficial abrasions noted over the second, third, and fourth MCP joints dorsally.] Test Results: [X-ray of the left hand obtained showed no obvious fractures as read by radiology and myself] Emergency Department Course and Treatment: [She was given an Avi wrap] Treatment Plan: [Patient will be given referral to primary care physician for follow-up and 7 to 10 days.] Disposition: [Discharged home in stable condition] Impression: [Contusion left hand] This note was generated with [employer] dictation software. It may contain incorrect words, spelling, and punctuation that were not noted in review of the chart prior to signing ED Disposition - Plan for ED Patient: Referrals: Care Physician,No Primary [Primary Care Provider] -
--- NOTE | 2019-08-08 18:45 | RAD_ITS ---
STUDY: X-RAY - LEFT HAND REASON FOR EXAM: Male, 28 years old. Left hand injury TECHNIQUE: 3 view(s) of the hand. COMPARISON: None. FINDINGS: Normal radiocarpal articulation. Normal distal radioulnar joint. Normal visualized carpal bones. Normal carpal articulations Normal carpometacarpal articulation of the thumb. Normal second through fifth carpometacarpal joints. There is deformity of the fifth metacarpal related to previous fracture. Normal metacarpophalangeal joint of the thumb. Normal interphalangeal joint of the thumb. Normal proximal and distal phalanges of the thumb. Normal metacarpophalangeal joints of the second through fifth fingers. Normal proximal and distal interphalangeal joints of the second through fifth fingers. Normal phalanges of the second through fifth fingers. The soft tissue structures are unremarkable. RAD/Hand Min 3 Views IMPRESSION: No definite acute or significant abnormality seen. Electronically Signed: Gonzalo Haley MD at 19:12 EDT , Service support ,
--- NOTE | 2019-08-08 19:26 | ED.DEP ---
ED Disposition - Plan for ED Patient: Instructions: ED HAND CONTUSION Referrals: Care Physician,No Primary [Primary Care Provider] - Renny Merlos MD [STAFF PHYSICIAN] - 1 Week
[2019-08-08 19:56] VITALS: BP 128/77; PULSE 74; RESP 16
== END 2019-08-08 20:00 | disposition home or self-care (01) ==
LOC: ED 19:05
PROVIDERS: Emergency Provider Emergency Medicine
DX: S60.222A Contusion of left hand, initial encounter (principal); F17.200 Nicotine dependence, unspecified, uncomplicated; Y29.XXXA Contact with blunt object, undetermined intent, initial encounter
CPT/HCPCS: 73130; 99282

== ENCOUNTER 2019-11-04 23:08 | Emergency (ER) | payer SELFPAY ==
[2019-11-04 23:10] VITALS: BP 131/92; PULSE 112; RESP 18; TEMP 36.6; O2SAT 98; BMI 21.8
[2019-11-04] MEDS: fentaNYL 100 MCG/2 ML Ampul IV (23:17)
--- NOTE | 2019-11-04 23:20 | RAD_ITS ---
STUDY: X-RAY - RIGHT ELBOW REASON FOR EXAM: Male, 29 years old. PT FELL JUMPING OVER A TRASH CAN. + DEFORMITY TO RIGHT ARM. +ETOH TECHNIQUE: 3 view(s) of the elbow. COMPARISON: None. FINDINGS: Limited by markedly suboptimal positioning. No lateral view. Probable complete elbow dislocation with the ulna and radius dorsal to normal position. No gross fractures are seen. The soft tissue structures are unremarkable. RAD/Elbow min 3 Views IMPRESSION: Markedly suboptimal positioning. No true lateral. Dislocation of the elbow without definite fracture. Electronically Signed: Gonzalo Haley MD at 23:41 EDT , Service support ,
--- NOTE | 2019-11-04 23:37 | ED.VIS.GEN ---
History of Present Illness Chief Complaint: Upper Extremity Injury Informant: Patient Narrative: 29-year-old male presents by EMS with right elbow pain. States he tried to jump over a trash can and fell on his right arm. States he had immediate sharp pain in the area of his elbow. Denies any sensory changes. Does admit to drinking alcohol this evening. Had approximately 8 beers and 3 shots of hard liquor. Denies any head injury or neck pain. Past Medical History - Allergies and Home Meds Allergies/Adverse Reactions: Allergies Fish Containing Products Allergy (Verified 08/08/19 18:18) Anaphylaxis Penicillins Allergy (Verified 08/08/19 18:18) Hives Primary Care Physician: Care Physician,No Primary [Primary Care Provider] - Prior records reviewed: Yes Past Medical History: None Surgical History: no surgical history Lives: Alone Smoking Status: Current every day smoker Alcohol: Heavy Drugs: Marijuana Review of Systems General: Denies: Chills, Fever, Sweats Eyes: Denies: Visual changes - bilaterally, Diplopia ENT: Denies: Rhinorrhea, Sore throat Cardiovascular: Denies: Chest pain, Palpitations Respiratory: Denies: Dyspnea, Cough, Dyspnea on exertion Gastrointestinal: Denies: Abdominal pain, Nausea, Vomiting, Diarrhea, Melena, Hematochezia Genitourinary: Denies: Dysuria, Hematuria, Frequency Musculoskeletal: Reports: Arthralgias. Denies: Back pain, Extremity Pain Skin: Denies: Rash, Wounds Neurological: Denies: Headache, Weakness, Numbness Physical Exam Vital Signs/Narrative: Vital Signs Temp Pulse Resp BP Pulse Ox 11/04/19 23:10 97.8 F 112 H 18 131/92 H 98 Inital Vital Signs reviewed: Yes General: Well nourished, Well developed, No Acute Distress Head: Normocephalic, Atraumatic Eyes: Perrl, EOMI ENT: Moist mucous membranes, No rhinorrhea Neck: Supple, Nontender Cardiovascular: Regular rate, Regular rhythm, No murmurs Respiratory: No distress, CTA bilaterally, Chest nontender Abdomen: Soft, Nontender, Nondistended, Normal bowel sounds Back: Nontender, Normal Inspection Extremities: No edema, - - Obvious deformity to the right elbow. Strong palpable brachial and radial pulses. Sensation intact. Skin: Normal color, No rash Neurological: Alert, Oriented x3, Cranial nerves II-XII grossly intact, Normal Strength, Normal Sensation Psychological: Normal affect, Normal Mood Diagnostic/Tx/Re-eval Clinical Impression(s) from Imaging Studies Elbow X-Ray 11/04/19 23:20 IMPRESSION: Markedly suboptimal positioning. No true lateral. Dislocation of the elbow without definite fracture. Electronically Signed: Gonzalo Haley MD at 23:41 EDT , Service support , - Medical Decision Making Patient appears well and nontoxic. Moderate to severe pain secondary to likely elbow dislocation. Confirmed by x-ray. Patient was given 100 mcg of fentanyl. Sedation was then performed using 10 mg of etomidate. Successful reduction of the posterior elbow dislocation. Posterior long-arm splint was placed with Ortho-Glass. Patient tolerated procedure well. Will be asked to follow-up with primary care provider as well as orthopedic surgeon Dr. Barnhart. On reevaluation at 0116 patient has full range of motion at the wrist. Sensation intact to the hand. Patient stating that he does have difficulty moving his fingers however can range him through full range of motion as well as make okay as well as thumbs up signals. Patient has compressible compartments at this time. Good capillary refill. She will be given short course of Percocet. Advised to not take this medication this evening giving he has been drinking alcohol. He is alert and oriented and does understand all instructions. Mother also present at time of disposition. Discharged in stable condition. ED Disposition - Plan for ED Patient: Disposition: Home or Assisted Living Diagnosis: Elbow dislocation, Fall Instructions: ED DISLOCATED ELBOW Prescriptions: Oxycodone HCl/Acetaminophen [Percocet 5-325 mg Tablet] 1 ea PO Q8H PRN PRN 2 Days #6 tab PRN Reason: Pain Score 6-10/10 Prescription Printed Referrals: Lex Barnhart MD [STAFF PHYSICIAN] - 3-5 Days
[2019-11-04 23:39] VITALS: BP 140/87; PULSE 102; RESP 18; O2SAT 95
[2019-11-04 23:54] VITALS: BP 129/84; BP 131/78; BP 154/79; PULSE 105; PULSE 96; PULSE 97; PULSE 99; RESP 18; RESP 20; O2SAT 95; O2SAT 97; O2SAT 98
--- NOTE | 2019-11-05 00:09 | RAD_ITS ---
HISTORY: Post reduction of right elbow. EXAMINATION/TECHNIQUE: XR right elbow 2 views 0003 hours COMPARISON: 11/04/2019 FINDINGS: Posterior dislocation of the right elbow, status post successful closed reduction. A true lateral view was not obtained and this partly limits evaluation. No fracture identified. RAD/Elbow 2 Views IMPRESSION: Right elbow posterior dislocation status post successful closed reduction. No postreduction fracture seen. at 0107 Reported and signed by: Marlon Cazares MD Electronically Signed: Marlon Cazares, at 1:06 EDT Tel , Service support ,
[2019-11-05 00:17] VITALS: BP 137/109; PULSE 105; RESP 22; O2SAT 98
[2019-11-05] MEDS: Etomidate 20 MG/10 ML Vial 10 MG IV (00:17)
[2019-11-05 00:22] VITALS: BP 111/97; PULSE 102; RESP 18; O2SAT 97
[2019-11-05 00:27] VITALS: BP 134/89; PULSE 105; RESP 18; O2SAT 97
[2019-11-05 00:30] VITALS: BP 132/67; O2SAT 96
[2019-11-05] MEDS: fentaNYL 100 MCG/2 ML Ampul 50 MCG IV (00:40)
[2019-11-05 01:23] VITALS: BP 118/58; PULSE 96; RESP 16; O2SAT 96
== END 2019-11-05 01:25 | disposition home or self-care (01) ==
PROVIDERS: Emergency Provider Emergency Medicine
DX: S53.104A Unspecified dislocation of right ulnohumeral joint, initial encounter (principal); F17.200 Nicotine dependence, unspecified, uncomplicated; W19.XXXA Unspecified fall, initial encounter
CPT/HCPCS: 29105; 73070; 73080; 96374; 96375; 96376; 99152; 99285; A4216

== ENCOUNTER 2022-07-26 14:04 | Emergency (ER) | payer MEDICAID, SELFPAY ==
[2022-07-26 14:05] VITALS: BP 140/97; PULSE 88; RESP 16; TEMP 36.8; O2SAT 100; BMI 29.2
--- NOTE | 2022-07-26 14:23 | EX.ED.DYSGE1 ---
HPI <ANNAMARIA Santillan - Last Filed: 07/26/22 20:41> History of Present Illness Chief Complaint: Dizziness Narrative Narrative: Patient presenting today with a headache that started around 1 PM this afternoon. He states that the headache was gradual in onset but is the worst headache he has ever had. He does have a history of headaches and gets them regularly and has never been diagnosed with migraines as he does not have a PCP. He states his headaches are getting more frequent and are worsening. He does report having some dizziness, nausea, and ringing in his ears before arrival but does not now. His grandfather did from a brain aneurysm but he has no personal history of this. He denies having any chronic health conditions, photophobia, chest pain, shortness of breath, abdominal pain, and vomiting. PFSH <ANNAMARIA Santillan - Last Filed: 07/26/22 20:41> PFSH Allergy/AdvReac Type Severity Reaction Status Date / Time Fish Containing Products Allergy Anaphylaxis Verified 08/08/19 18:18 Penicillins Allergy Hives Verified 08/08/19 18:18 Social History Smoking Status: Current every day smoker tobacco type: cigarettes ROS <ANNAMARIA Santillan - Last Filed: 07/26/22 20:41> ROS ED Constitutional Constitutional ED: Denies chills, fever(s) or sweats Eyes Eyes: Denies blurry vision or diplopia Cardiovascular Cardiovascular: Denies chest pain or palpitations Respiratory/Chest Respiratory/Chest: Denies cough, dyspnea, tachypnea or wheezing Gastrointestinal Gastrointestinal: Reports nausea; Denies abdominal pain, diarrhea or vomiting Musculoskeletal Musculoskeletal: Reports neck pain; Denies back pain Integumentary Denies abscess, Abrasions or rash Neurologic Neurologic: Reports dizziness and headache(s); Denies confusion, paresthesias or weakness Psychiatric Psychiatric: Denies anxiety, depression, suicidal ideation or suicidal thoughts EXAM <ANNAMARIA Santillan - Last Filed: 07/26/22 20:41> Physical Exam Const Vital Signs: 07/26/22 14:05 07/26/22 15:34 Temperature 98.2 F Temperature Source Temporal Pulse Rate 88 100 Respiratory Rate 16 16 Blood Pressure 140/97 H 148/77 H Blood Pressure Mean 111 Pulse Ox 100 99 Oxygen Delivery Method Room Air Positive well nourished, well developed and no apparent distress General Appearance ED: well developed HEENT Reports normocephalic and head/scalp atraumatic Mouth ED: Yes moist mucous membranes normal Eyes PERRL and EOMs intact bilaterally Neck full ROM and supple Chest Wall inspection of chest normal Resp normal respiratory effort and clear to auscultation bilaterally Cardio regular rate and regular rhythm GI soft to palpation, non-tender, non-distended and no masses Back/Spine normal ROM and normal to inspection Extremity normal to inspection and full ROM Neuro oriented x3, CN's II-XII intact bilaterally, moves all extremities, no focal motor deficits and no sensory deficits noted Sensorium / Orientation: awake and alert Psych mental status grossly normal and thought process normal Skin no rashes or lesions noted and no wounds <Dr. Conner Diehl MD - Last Filed: 07/26/22 14:51> Physical Exam Const Vital Signs: 07/26/22 14:05 07/26/22 15:34 Temperature 98.2 F Temperature Source Temporal Pulse Rate 88 100 Respiratory Rate 16 16 Blood Pressure 140/97 H 148/77 H Blood Pressure Mean 111 Pulse Ox 100 99 Oxygen Delivery Method Room Air MDM <ANNAMARIA Santillan - Last Filed: 07/26/22 20:41> MDM MDM Narrative Medical decision making narrative: Patient presenting due to a headache that started around 1 PM. He has a history of headaches but states this is the worst when he is ever had. He does have a family history of brain aneurysm in his grandfather. He has never been worked up for any of his headaches as he does not have a PCP. Head CTA will be obtained to rule out brain aneurysm and other intracranial abnormality and is negative. Patient will be given Toradol, Reglan, IV fluids, and Benadryl. On reexamination patient states that he is feeling much better. He does not have a PCP at this time, I have referred him to 1. He has been given return instructions and will be discharged home in stable condition, he is comfortable with plan. I have personally performed a face to face assessment of the patient and have reviewed the ALONSO Note. I performed a substantive portion of the visit including all aspects of the following. My burgos findings include: History is 31-year-old male history of headaches which are becoming more frequent. Also associated dizziness. No trauma. No fever. No sinus congestion. No prior work-up. Grandfather reportedly of a brain aneurysm. Evaluated this patient with our physician assistant program director. Exam is [31-year-old male no acute distress. Vital signs stable afebrile. H EENT exam unremarkable. Neck nontender no lymphadenopathy. No meningismus. Able to touch chin to chest. Lungs clear to auscultation bilaterally. Heart regular rhythm no murmur. Abdomen soft nontender. Moving all 4 extremities. Neurologic exam normal. NIH 0. Normal speech. No facial droop.] Medical Decision Making [31-year-old treated as a potential migraine headache. IV fluids Toradol, Reglan and Benadryl. Along with IV fluids. We are obtaining a CTA of his brain due to the family history and his history of increasing headaches in frequency and duration. If the CTA is negative and he is feeling better he will be discharged home.] Other additions or changes: [None] Radiography Diagnostic Testing: Clinical Impression(s) from Imaging Studies Head CTA 07/26/22 14:26 IMPRESSION: There are no acute intracranial findings. Electronically Signed: Justen Shay MD at 15:27 EDT , <Dr. Conner Diehl MD - Last Filed: 07/26/22 14:51> [facility] Narrative Medical decision making narrative: Patient presenting due to a headache that started around 1 PM. He has a history of headaches but states this is the worst when he is ever had. He does have a family history of brain aneurysm in his grandfather. He has never been worked up for any of his headaches as he does not have a PCP. Head CT will be obtained to rule out brain aneurysm and other intracranial abnormality. Patient will be given Toradol, Reglan, IV fluids, and Benadryl. I have personally performed a face to face assessment of the patient and have reviewed the ALONSO Note. I performed a substantive portion of the visit including all aspects of the following. My burgos findings include: History is 31-year-old male history of headaches which are becoming more frequent. Also associated dizziness. No trauma. No fever. No sinus congestion. No prior work-up. Grandfather reportedly of a brain aneurysm. Evaluated this patient with our physician assistant program director. Exam is [31-year-old male no acute distress. Vital signs stable afebrile. H EENT exam unremarkable. Neck nontender no lymphadenopathy. No meningismus. Able to touch chin to chest. Lungs clear to auscultation bilaterally. Heart regular rhythm no murmur. Abdomen soft nontender. Moving all 4 extremities. Neurologic exam normal. NIH 0. Normal speech. No facial droop.] Medical Decision Making [31-year-old treated as a potential migraine headache. IV fluids Toradol, Reglan and Benadryl. Along with IV fluids. We are obtaining a CTA of his brain due to the family history and his history of increasing headaches in frequency and duration. If the CTA is negative and he is feeling better he will be discharged home.] Other additions or changes: [None] Radiography Diagnostic Testing: Clinical Impression(s) from Imaging Studies Head CTA 07/26/22 14:26 IMPRESSION: There are no acute intracranial findings. Electronically Signed: Justen Shay MD at 15:27 EDT Reading Location ID and State: [facility] / [place] , Service support , Discharge Plan Triage Chief Complaint: Dizziness ED Midlevel Provider: Nancy Jonas ED Provider: Conner Diehl Dx/Rx/DC Orders Clinical Impression: Headache Instructions: Understanding Headache Pain Primary Care Provider: Care Physician,No Primary Referrals: Tiffanie Hightower DO [Med Staff - Search Engine Optimization Specialist] - 5-7 Days Care Physician,No Primary [Primary Care Provider] - Activity Restrictions/Additional Instructions: Please follow-up with the primary care provider and referred you to to establish care. Please return for any worsening of symptoms. Disposition Disposition: Home, Self Care Discharge Date/Time: 07/26/22 15:49
--- NOTE | 2022-07-26 14:26 | CT_ITS ---
STUDY: CTA OF THE BRAIN W W/O REASON FOR EXAM: Male, 31 years old. worse headache ever, family hx aneurysm. headache TECHNIQUE: CT angiography was performed with a multi-detector CT scanner. Data acquisition was obtained from the skull base through the vertex following intravenous administration of Iw w/o 100mL Isovue-300 contrast. MIP images were reconstructed from the axial data set. Post-processing of the angiographic images was performed, with multiplanar reformation and 3D reconstruction. MIPS images were obtained. Analyzed with V[employer].louise Individualized dose optimization techniques were used for this CT. COMPARISON: None. FINDINGS: Normal bilateral petrous carotid arteries. Normal right cavernous carotid artery with a normal supraclinoid bifurcation. Normal left cavernous carotid artery with a normal supraclinoid bifurcation. Normal right A1 segments of the anterior cerebral artery. Normal left A1 segments of the anterior cerebral artery. Normal intact anterior communicating artery (ACOM). Normal bilateral A2 segments of the anterior cerebral arteries. Normal right M1 and M2 segments of the middle cerebral arteries, with a normal M1 bifurcation. Normal left M1 and M2 segments of the middle cerebral arteries, with a normal M1 bifurcation. Normal right posterior communicating artery (PCOM). Normal left posterior communicating artery (PCOM). Normal bilateral vertebral arteries. Normal basilar artery with a normal basilar bifurcation. The visualized bilateral superior cerebellar (SCA) arteries are normal. Normal bilateral P1, P2 and visualized P3 segments of the posterior cerebral arteries. There is no demonstrated aneurysm of the [place]. rmal size ventricles and extra-axial spaces for the patient''s age. Normal white matter tracts of the cerebral hemispheres. Normal basal ganglia and thalami. Normal brainstem. Normal cerebellum. There is no intracranial hemorrhage IMPRESSION: Normal [place] without a demonstrated aneurysm or hemodynamically significant stenosis. ALL ABOVE CRITERIA BY NASCET. Electronically Signed: Justen Shay MD at 15:27 EDT , STUDY: CT BRAIN WITHOUT CONTRAST REASON FOR EXAM: Male, 31 years old. worse headache ever, family hx aneurysm. headache TECHNIQUE: Transaxial CT imaging of the brain was performed without administration of intravenous contrast material. Individualized dose optimization techniques were used for this CT. COMPARISON: None FINDINGS: Normal calvarium. Normal soft tissues. Normal size ventricles and extra-axial spaces for the patient''s age. Normal white matter tracts of the cerebral hemispheres. Normal basal ganglia and thalami. Normal brainstem. Normal cerebellum. There is no intracranial hemorrhage. There are no findings of an acute ischemic infarction. There is sinus disease. ASPECTS 10 CT/CTA Head W/WO Contrast IMPRESSION: There are no acute intracranial findings. Electronically Signed: Justen Shay MD at 15:27 EDT ,
[2022-07-26] MEDS: Metoclopramide 10 MG/2 ML Vial IV (14:54)
[2022-07-26] MEDS: Ketorolac 15 MG/ML Vial IV (14:54)
[2022-07-26] MEDS: DiphenhydrAMINE 50 MG/ML Syringe 25 MG IV (14:54)
[2022-07-26] MEDS: 0.9% Normal Saline 1,000 ML 999 ML IV (14:54)
[2022-07-26 15:34] VITALS: BP 148/77; PULSE 100; RESP 16; O2SAT 99
== END 2022-07-26 15:49 | disposition home or self-care (01) ==
PROVIDERS: Emergency Provider Emergency Medicine; Visit Provider Emergency Medicine
DX: R51.9 Headache, unspecified (principal); F17.210 Nicotine dependence, cigarettes, uncomplicated
CPT/HCPCS: 70496; 96361; 96374; 96375; 99284; J7030; Q9967; A4216

== ENCOUNTER 2024-01-28 11:10 | Emergency (ER) | payer SELFPAY ==
[2024-01-28 11:11] VITALS: BP 152/92; PULSE 92; RESP 16; TEMP 36.2; O2SAT 100; BMI 21.8
[2024-01-28 11:13] VITALS: BP 152/92; PULSE 98; RESP 16; TEMP 36.2; O2SAT 100
[2024-01-28] MEDS: dexAMETHasone 4 MG Tablet 12 MG PO (11:51)
[2024-01-28] MEDS: Ibuprofen 600 MG Tablet PO (11:51)
--- NOTE | 2024-01-28 11:56 | EX.ED.DYSGE1 ---
HPI History of Present Illness Chief Complaint: Abscess Informant: patient and spouse/S.O. Narrative Narrative: Sent over from [facility] for concerns for peritonsillar abscess. Sore throat started yesterday pain with swallowing. No fevers or chills. Had strep when he was a kid. No cough. Allergy penicillin causing hives. Reportedly swabbed his throat however he does not know results. Prior similar symptoms: No PFSH PFSH Medical History no medical history Home Medications ?Medication ?Instructions ?Recorded ?Last Taken ?Type NK 01/28/24 Unknown History Allergy/AdvReac Type Severity Reaction Status Date / Time Fish Containing Products Allergy Anaphylaxis Verified 01/28/24 11:11 Penicillins Allergy Hives Verified 01/28/24 11:11 Social History Smoking Status: Current every day smoker tobacco type: e-cigarettes ROS ROS ED Constitutional Constitutional ED: Denies chills, fever(s) or sweats Eyes Eyes: Denies change in vision ENT ENT ED: Reports sore throat; Denies dysphagia Cardiovascular Cardiovascular: Denies chest pain, leg edema, palpitations or racing heartbeat Respiratory/Chest Respiratory/Chest: Denies cough, dyspnea or dyspnea on exertion Gastrointestinal Gastrointestinal: Denies abdominal pain, diarrhea, nausea or vomiting Genitourinary Genitourinary ED: Denies dysuria, hematuria or urinary frequency Musculoskeletal Musculoskeletal: Denies back pain, extremity pain or neck pain Integumentary Denies rash or wounds Neurologic Neurologic: Denies headache(s), paresthesias or weakness EXAM Physical Exam Const Vital Signs: 01/28/24 11:11 01/28/24 11:13 01/28/24 12:16 Temperature 97.1 F L 97.1 F L Temperature Source Oral Oral Pulse Rate 92 98 Respiratory Rate 16 16 Blood Pressure 152/92 H 152/92 H 142/85 H Blood Pressure Mean 112 112 104 Pulse Ox 100 100 Oxygen Delivery Method Room Air Room Air 01/28/24 13:55 Temperature 98.4 F Temperature Source Pulse Rate 72 Respiratory Rate 16 Blood Pressure 116/70 Blood Pressure Mean 85 Pulse Ox 99 Oxygen Delivery Method Positive well nourished and well developed General Appearance ED: well developed and NAD HEENT Reports moist mucous membranes HEENT Narrative: Posterior pharyngeal erythema there is swelling of the uvula 1+ symmetric tonsils uvula is midline. No exudates. Airway patent. No trismus. normocephalic and atraumatic Eyes EOMs intact bilaterally and conjunctivae normal General Eye ED: Yes normal appearance of both eyes Neck supple Neck Narrative: Tender bilateral anterior lymphadenopathy. General: tenderness Chest Wall Chest: Negative for tenderness Resp normal respiratory effort and normal air movement Effort and Inspection: symmetric chest movement; Negative for respiratory distress Cardio regular rate, regular rhythm and no murmurs Peripheral Pulses: pulses 2+ throughout GI normal to inspection, nondistended, normoactive bowel sounds and non-tender Palpation: Negative for guarding or rebound tenderness present Back/Spine no CVA tenderness and no thoracic nor lumbar tenderness Extremity normal to inspection General Extremety ED: Negative for edema or tenderness General Extremity: Negative for edema Neuro oriented x3 and no sensory deficits noted Sensorium / Orientation: awake and alert Skin no rashes or lesions noted and no wounds MDM MDM MDM Narrative Medical decision making narrative: Interventions / MDM: Differential diagnosis: Pharyngitis Diagnosis considered but do not suspect: No clinical peritonsillar abscess or retropharyngeal abscess. My EKG interpretation: N/A Imaging independently reviewed and interpreted by myself: N/A External documents reviewed: N/A Test considered but not ordered:N/A ED course: Clinical evaluation uvula midline with 1+ symmetric tonsils. No clinical peritonsillar abscess. He has erythema with signs of uvulitis. Treated with dexamethasone strep test sent along with additional ibuprofen. 1345: Patient observed there is delay on strep test. Strep PCR returned negative. Swelling improved while in the department after steroids. Discussed likely viral syndrome, discussed symptomatic treatment fluids continue ibuprofen. I discussed tricked return precautions if symptoms worsen with possible imaging at that time. He understands and agrees with plan. All questions were answered. Re-evaluation: stable Disposition discussed with patient/family/significant other: Patient Case discussed with consulting clinician: N/A This note was generated with [employer]icianPortal dictation software. It may contain incorrect words, spelling, and punctuation that were not noted in checking the note before signing. Discharge Plan Triage Chief Complaint: Abscess ED Provider: Michael Owen Dx/Rx/DC Orders Clinical Impression: Acute pharyngitis, Sore throat Instructions: ED Pharyngitis, Viral Prescriptions: No Action NK Primary Care Provider: Care Physician,No Primary Referrals: Jovan Machuca MD [Med Staff - [employer]] - 1 Week Care Physician,No Primary [Primary Care Provider] - Activity Restrictions/Additional Instructions: Strep PCR negative. You have no clinical signs of peritonsillar abscess during evaluation. Monitor symptoms. Motrin 600 mg every 6 hours as needed for continue oral fluids right duration. You develop worsening symptoms unable to tolerate secretions, return to the ED for reevaluation. Print Language: Luxembourgish Disposition Disposition: Home, Self Care Discharge Date/Time: 01/28/24 13:55
[2024-01-28 12:16] VITALS: BP 142/85
[2024-01-28 13:55] VITALS: BP 116/70; PULSE 72; RESP 16; TEMP 36.9; O2SAT 99
== END 2024-01-28 13:55 | disposition home or self-care (01) ==
PROVIDERS: Emergency Provider Emergency Medicine; Visit Provider Emergency Medicine
DX: J02.9 Acute pharyngitis, unspecified (principal)
CPT/HCPCS: 87651; 99283

== ENCOUNTER 2024-06-15 06:18 | Emergency (ER) | payer SELFPAY ==
[2024-06-15 06:19] VITALS: BP 152/102; PULSE 116; RESP 22; TEMP 37.4; O2SAT 100; BMI 23.6
--- NOTE | 2024-06-15 06:34 | CT_ITS ---
PROCEDURE: ABDOMEN/PELVIS W IV CONT ONLY REASON FOR EXAM: 33-year-old male, epigastric abdominal pain. TECHNIQUE: Abdomen and pelvis CT with intravenous contrast. No oral contrast. IV CONTRAST: Isovue-300 COMPARISON: CT abdomen pelvis 12/28/2018. FINDINGS: Lung bases: The heart is normal in size. The lung bases are clear. Liver: The liver is normal in size without focal hepatic mass. The major portal veins are patent. No biliary ductal dilation. Gallbladder: No radiopaque stones within the gallbladder. Spleen: Unremarkable. Pancreas: Unremarkable. Adrenals: Unremarkable. Kidneys and urinary bladder: No hydronephrosis or nephrolithiasis. Contrast opacifies the bilateral renal collecting systems and urinary bladder. Reproductive Organs: Unremarkable. Bowel: The bowel loops are normal in caliber. No ascites or pneumoperitoneum. Normal appendix. Moderate retained fecal material throughout the colon. Lymph nodes: No suspicious lymph node enlargement. Vasculature: Major vascular structures are unremarkable. Bones: No aggressive osseous lesions. CT/Abdomen/Pelvis W IV Cont ONLY IMPRESSION: UNREMARKABLE CONTRAST-ENHANCED CT OF THE ABDOMEN AND PELVIS One or more dose reduction techniques were used (e.g., Automated exposure contr ol, adjustment of the mA and/or kV according to patient size, use of iterative reconstruction technique). Reading Location: [id number]
--- NOTE | 2024-06-15 06:44 | EX.ED.DYSGE1 ---
HPI History of Present Illness Chief Complaint: Abd Pain Narrative Narrative: Chief complaint and HPI: Epigastric abdominal pain. 33-year-old male with past medical history of methamphetamine abuse presents for evaluation of epigastric abdominal pain. Patient states since approximately 6/7 PM yesterday he has been having epigastric abdominal pain. He describes it as sharp. Intermittently radiates to the right shoulder. He denies any fever, chest pain, shortness of breath, nausea, vomiting, diarrhea, constipation, dysuria. He denies any history of PUD, daily alcohol use, daily NSAID use. Denies history of pancreatitis. Patient states he last used methamphetamine 2 days ago. Review of systems: See HPI Medications: As listed on the chart Allergies: As listed on the chart PFSH: Per chart Vital signs: As listed on the chart. Reviewed. Physical exam: Gen: A&O x3 Head: Normocephalic, atraumatic Eyes: No sclera icterus, conjunctiva clear ENT: Mildly dry mucous membranes Neck: Trachea midline, No JVD CV: Tachycardic, regular rhythm, no murmurs, no peripheral edema Resp: Lungs CTA BL, no w/r/c GI: Abd soft, non-distended, tender to palpation in the epigastrium, + voluntary guarding, no rebound or rigidity Musc: Full ROM, no deformity Skin: Warm, dry Neuro: Alert, oriented, grossly intact, sensation intact Psych: Cooperative, appropriate mood and affect PFSH PFSH Medical History no medical history Home Medications ?Medication ?Instructions ?Recorded ?Last Taken ?Type NK 01/28/24 Unknown History Allergy/AdvReac Type Severity Reaction Status Date / Time Fish Containing Products Allergy Anaphylaxis Verified 06/15/24 06:23 Penicillins Allergy Hives Verified 06/15/24 06:23 Social History Smoking Status: Current every day smoker tobacco type: e-cigarettes EXAM Physical Exam Const Vital Signs: 06/15/24 06:19 Temperature 99.4 F H Temperature Source Oral Pulse Rate 116 H Respiratory Rate 22 H Blood Pressure 152/102 H Blood Pressure Mean 118 Pulse Ox 100 Oxygen Delivery Method Room Air MDM MDM MDM Narrative Medical decision making narrative: 33-year-old male with past medical history of methamphetamine abuse presents for evaluation of epigastric abdominal pain. Differential diagnosis includes but is not limited to pancreatitis, cholecystitis, PUD, gastroenteritis, dehydration, less likely ACS. Morphine, Zofran, NS bolus, Pepcid ordered for symptoms. Laboratory workup ordered including chest x-ray and CT abdomen pelvis. At this point in time, labs, chest x-ray, CT abdomen pelvis pending. Patient signed out to oncoming physician Dr. Chan. Final disposition pending results and symptomatic management of the patient. EKG: Interpreted by me/EM physician: EKG shows sinus tachycardia without any acute ischemic changes. Heart rate 112 Discharge Plan Triage Chief Complaint: Abd Pain ED Provider: Buster Heck Dx/Rx/DC Orders Prescriptions: No Action NK Primary Care Provider: Care Physician,No Primary Referrals: Care Physician,No Primary [Primary Care Provider] - Print Language: Belarusian
--- NOTE | 2024-06-15 07:00 | RAD_ITS ---
PROCEDURE: CHEST 1 VIEW REASON FOR EXAM: 33-year-old female, epigastric abdominal pain. TECHNIQUE: Frontal view of the chest. COMPARISON: Yesterday FINDINGS: The heart size is normal. No focal consolidation, pleural effusion or pneumothorax. The bones are unremarkable. RAD/Chest 1 View IMPRESSION: NEGATIVE CHEST. Reading Location: [id number]
[2024-06-15] MEDS: 0.9% Normal Saline (1000mL) 1,000 ML 999 ML IV ×2 (07:09→08:49)
[2024-06-15] MEDS: Ondansetron 4 MG/2 ML Vial IV (07:09)
[2024-06-15] MEDS: Morphine 4 MG/ML Syringe IV (07:09)
[2024-06-15] MEDS: Famotidine 200 MG/20 ML MDV 20 MG in 0.9% Normal Saline (Pres. free 8 ML 300 MG IV (07:17)
[2024-06-15 07:32] LABS: Absolute Lymphocyte Count 1.07 X10^3/uL (0.83-4.51); Absolute Neutrophil Count 4.2 X10^3/uL (2.0-7.7); Basophil# 0.03 X10^3/uL; Basophil% 0.5 % (0-1); Eosinophil# 0.02 X10^3/uL; Eosinophils% 0.3 % (0-5); Hematocrit 42.8 % (40-54); Hemoglobin 14.5 g/dL (13.0-16.5); Lymphocyte # 1.07 X10^3/ul (0.83-4.51); Lymphocyte % 17.7 % (19-41); Mean Corp Hgb Conc 33.9 g/dL (32-36); Mean Corpuscular Hgb 28.7 pg (27.0-32.0); Mean Corpuscular Volume 84.8 fL (80-94); Mean Platelet Vol. 10.2 fl (6.2-12.0); Monocyte# 0.75 X10^3/uL; Monocyte% 12.4 % (0-10); NRBC Flagged by Analyzer 0 % (0-5); Neutrophil # 4.16 X10^3/uL (2.7-7.7); Neutrophil % 68.8 % (47-70); Platelet Count 281 K/mm3 (150-450); RBC Distribution Width CV 12.8 % (11.6-14.6); RBC Distribution Width SD 39.4 fl (35.1-43.9); Red Blood Count 5.05 M/mm3 (4.6-6.2); White Blood Count 6.1 K/mm3 (4.4-11.0)
[2024-06-15 07:41] LABS: Bacteria 0 SEEN /hpf (None Seen); Mucous, Urine 0 SEEN /hpf (<or=2+); White Blood Cells 0 SEEN /hpf (0-5)
[2024-06-15 08:03] LABS: Color, Urine Yellow (Yellow); Glucose, Dipstick Normal (Normal); Ketone-Dipstick Negative (Negative); Leukocyte Esterase-Dipstick Negative /ul (Negative); Nitrite-Dipstick Negative (Negative); Occult Blood-Urine 10 /ul (Negative); Protein-Dipstick 30 mg/dl (Negative); Urine Bilirubin Dipstick Negative (Negative); Urine Clarity Clear (Clear); Urine Urobilinogen Normal (Normal)
[2024-06-15 08:04] LABS: Red Blood Cells-Urine 0-5 SEEN /hpf (0-5); Squamous Epithelial Cells - UA 0-5 SEEN /hpf (0-5)
[2024-06-15 08:09] LABS: Lactic Acid 2.8 mmol/L (0.4-1.9)
[2024-06-15 08:14] LABS: Amphetamine Urine POSITIVE (<1000 ng/mL); Barbiturate Urine VISTA NEGATIVE (< 200 ng/mL); Benzodiazepine Urine VISTA NEGATIVE (< 200 ng/mL); Cocaine Urine VISTA NEGATIVE (< 300 ng/mL); Ecstacy Urine VISTA NEGATIVE (< 500 ng/mL); Methadone Urine VISTA NEGATIVE (< 300 ng/mL); Opiates Urine POSITIVE (< 300 ng/mL); PCP Urine NEGATIVE (< 25 ng/mL); THC Urine VISTA NEGATIVE (< 50 ng/mL); Vista UDS pH Range 7
[2024-06-15 08:19] VITALS: BP 150/92; PULSE 103; O2SAT 99
--- NOTE | 2024-06-15 08:27 | EDS_ITS ---
HPI History of Present Illness Chief Complaint: Abd Pain PFSH PFS Medical History no medical history Home Medications ?Medication ?Instructions ?Recorded ?Last Taken ?Type NK 01/28/24 Unknown History Allergy/AdvReac Type Severity Reaction Status Date / Time Fish Containing Products Allergy Anaphylaxis Verified 06/15/24 06:23 Penicillins Allergy Hives Verified 06/15/24 06:23 Social History Smoking Status: Current every day smoker tobacco type: e-cigarettes EXAM Physical Exam Const Vital Signs: 06/15/24 06:19 Temperature 99.4 F H Temperature Source Oral Pulse Rate 116 H Respiratory Rate 22 H Blood Pressure 152/102 H Blood Pressure Mean 118 Pulse Ox 100 Oxygen Delivery Method Room Air [facility] MDM Lab Data Labs: Laboratory Results - last 24 hr 06/15/24 06/15/24 07:05 07:35 WBC 6.1 RBC 5.05 Hgb 14.5 Hct 42.8 MCV 84.8 MCH 28.7 MCHC 33.9 RDW Std Deviation 39.4 RDW Coeff of Fred 12.8 Plt Count 281 MPV 10.2 Immature Gran % (Auto) 0.300 Neut % (Auto) 68.8 Lymph % (Auto) 17.7 L [place] % (Auto) 12.4 H Eos % (Auto) 0.3 Baso % (Auto) 0.5 Absolute Neuts (auto) 4.2 Absolute Lymphs (auto) 1.07 Nucleated RBC % 0 Sodium Cancelled Potassium Cancelled Chloride Cancelled Carbon Dioxide Cancelled Anion Gap Cancelled BUN Cancelled Creatinine Cancelled Estim Creat Clear Calc Cancelled Est GFR (MDRD) Af Amer Cancelled Est GFR (MDRD) Non-Af Cancelled BUN/Creatinine Ratio Cancelled Glucose Cancelled Lactic Acid 2.8 H* Calcium Cancelled Total Bilirubin Cancelled AST Cancelled ALT Cancelled Alkaline Phosphatase Cancelled Troponin I High Sens Cancelled Total Protein Cancelled Albumin Cancelled Globulin Cancelled Albumin/Globulin Ratio Cancelled Lipase Cancelled Urine Color Yellow Urine Clarity Clear Urine pH 8.0 Ur Specific [place] 1.010 Urine Protein 30 H Urine Glucose (UA) Normal Urine Ketones Negative Urine Occult Blood 10 H Urine Nitrite Negative Urine Bilirubin Negative Urine Urobilinogen Normal Ur Leukocyte Esterase Negative Urine RBC 0-5 SEEN Urine WBC 0 SEEN Ur Squamous Epith Cells 0-5 SEEN Urine Bacteria 0 SEEN Urine Mucus 0 SEEN Urine Opiates Screen POSITIVE H Urine Methadone Screen NEGATIVE Ur Barbiturates Screen NEGATIVE Ur Phencyclidine Scrn NEGATIVE Ur Amphetamines Screen POSITIVE H MDMA (Ecstasy) Screen NEGATIVE U Benzodiazepines Scrn NEGATIVE Urine Cocaine Screen NEGATIVE U Cannabinoids Screen NEGATIVE Ur Drug Screen Comment Ethyl Alcohol Cancelled Radiography Diagnostic Testing: Clinical Impression(s) from Imaging Studies Abdomen/Pelvis CT 06/15/24 06:34 IMPRESSION: UNREMARKABLE CONTRAST-ENHANCED CT OF THE ABDOMEN AND PELVIS One or more dose reduction techniques were used (e.g., Automated exposure co ntrol, adjustment of the mA and/or kV according to patient size, use of iterative reconstruction technique). Reading Location: [facility] Chest X-Ray 06/15/24 07:00 IMPRESSION: NEGATIVE CHEST. Reading Location: [facility] Discharge Plan Triage Chief Complaint: Abd Pain ED Provider: Buster Heck Dx/Rx/DC Orders Prescriptions: No Action NK Primary Care Provider: Care Physician,No Primary Referrals: Care Physician,No Primary [Primary Care Provider] - Print Language: Macedonian
[2024-06-15 09:07] LABS: ALB/GLOB Ratio 1.1 RATIO (0.9-2.4); AST(SGOT) 19 U/L (15-37); Alanine Aminotransfer ALT/SGPT 29 U/L (16-61); Albumin, Serum 3.7 g/dL (3.2-5.0); Alkaline Phosphatase 54 U/L (45-117); Anion Gap 8 (5-15); BUN 14 mg/dL (7-18); BUN/Creat Ratio 10.1 RATIO (10-20); Chloride 101 mmol/L (98-107); Creatinine, Serum 1.39 mg/dL (0.70-1.30); EST Glomerular Filtration Rate 63 mL/min (>60); Est Glom Filt Rate - Afr Amer 76 mL/min (>60); Estimated Creatinine Clearance 82.01 ml/min; Globulin 3.4 g/dL (2.2-4.2); Glucose 100 mg/dL (74-106); Lipase 22 U/L (73-393); Potassium 4.2 mmol/L (3.5-5.1); Protein, Total 7.1 g/dL (6.4-8.2); Sodium Level 138 mmol/L (136-145); Troponin-I HS 14 pg/mL (3.0-78.0)
[2024-06-15 09:21] LABS: Alcohol, Blood (Medical)-Serum < 3.0 mg/dL
[2024-06-15 09:58] VITALS: BP 143/84; O2SAT 96
[2024-06-15] MEDS: Dicyclomine 10 MG Capsule 20 MG PO (10:36)
[2024-06-15 10:44] LABS: Lactic Acid 1.8 mmol/L (0.4-1.9)
[2024-06-15 11:27] LABS: Reflex Lactate? Y
[2024-06-15 12:00] VITALS: BP 136/82; PULSE 93; O2SAT 95
[2024-06-15 12:25] VITALS: BP 131/83; PULSE 93; RESP 20; TEMP 36.9; O2SAT 95
== END 2024-06-15 12:29 | disposition home or self-care (01) ==
PROVIDERS: Emergency Medicine; Emergency Provider Surgery; Visit Provider Surgery
DX: R10.13 Epigastric pain (principal); F17.290 Nicotine dependence, other tobacco product, uncomplicated
CPT/HCPCS: 71045; 74177; 80053; 80307; 81001; 82077; 83605; 83690; 84484; 85025; 93005; 96361; 96374; 96375; 99285; Q9967; A4216; J2405

== ENCOUNTER 2025-03-18 19:47 | Emergency (ER) | payer SELFPAY ==
[2025-03-18 19:48] VITALS: BP 127/88; PULSE 96; RESP 16; TEMP 36.7; O2SAT 100; BMI 22.0
--- NOTE | 2025-03-18 21:48 | ED.RN ---
Pt's name called for placement into ED room from waiting room. Pt not found in waiting room, assumed lwbs.
== END 2025-03-18 21:47 | disposition left against medical advice (07) ==
LOC: ED 21:50
DX: Z53.21 Procedure and treatment not carried out due to patient leaving prior to being seen by health care provider (principal)

== ENCOUNTER 2025-03-19 03:21 | Emergency (ER) | payer SELFPAY ==
[2025-03-19 03:24] VITALS: BP 150/100; PULSE 95; RESP 16; TEMP 37.1; O2SAT 99; BMI 22.6
--- NOTE | 2025-03-19 03:50 | EDS_ITS ---
HPI History of Present Illness Chief Complaint: Ear Problem Informant: patient Narrative Narrative: Patient is a 34-year-old male who reports no significant past medical history. He states over the past 1 to 2 days he has had nasal congestion and sore throat. He states that it is painful to swallow and now he is also noticing right ear pain. He denies any fevers or chills or known sick contact. He states he has concern for an underlying infection because of his symptoms and therefore comes in for evaluation [facility] Medical History no medical history no medical history Home Medications ?Medication ?Instructions ?Recorded ?Last Taken ?Type dicyclomine 20 mg tablet 20 mg PO TID #30 tabs Unknown Rx ondansetron 4 mg disintegrating 4 mg PO Q6H PRN nausea and 06/15/24 Unknown Rx tablet vomiting #20 tabs clindamycin HCl 300 mg capsule 300 mg PO 4X/DAY 10 day s #40 03/19/25 Unknown Rx (Cleocin HCl) CAPSULES prednisone 20 mg tablet 40 mg (2 x 20 mg) PO DAILY 5 days 03/19/25 Unknown Rx #10 tabs Allergy/AdvReac Type Severity Reaction Status Date / Time Fish Containing Products Allergy Anaphylaxis Verified 03/19/25 03:29 Penicillins Allergy Hives Verified 03/19/25 03:29 Social History Smoking Status: Current every day smoker tobacco type: e-cigarettes ROS ROS ED Constitutional Constitutional ED: Reports chills and subjective; Denies fever(s) Eyes Eyes: Denies change in vision ENT ENT ED: Reports ear pain right, rhinorrhea and sore throat Cardiovascular Cardiovascular: Denies chest pain Respiratory/Chest Respiratory/Chest: Reports cough; Denies dyspnea Gastrointestinal Gastrointestinal: Denies abdominal pain, diarrhea, nausea or vomiting Musculoskeletal Musculoskeletal: Denies myalgias Integumentary Denies rash Neurologic Neurologic: Denies headache(s) Hematologic/Lymphatic Hematologic/Lymphatic: Denies easy bleeding or easy bruising Allergic/Immunologic Allergic/Immunologic ED: Denies mouth swelling or tongue swelling EXAM Physical Exam Const Vital Signs: 03/19/25 03:24 03/19/25 04:15 Temperature 98.7 F 98.6 F Temperature Source Oral Pulse Rate 95 89 Respiratory Rate 16 16 Blood Pressure 150/100 H 154/84 H Blood Pressure Mean 116 107 Pulse Ox 99 100 Oxygen Delivery Method Room Air Positive well nourished and well developed General Appearance ED: well developed; Negative for pallor HEENT HEENT Narrative: Normocephalic atraumatic Bilateral canals are normal. Right tympanic membrane is retracted without secondary findings to suggest infection. Left tympanic membrane is normal Nasal mucosa is hyperemic and boggy Posterior pharynx displays diffuse erythema with right sided tonsillar swelling with faint exudates. Mild trismus is noted. No change in voice or difficulty with secretions. Eyes PERRL and EOMs intact bilaterally General Eye ED: Negative for scleral icterus Neck supple Neck Narrative: Positive anterior cervical lymphadenopathy noted No brawny edema in the submental space to suggest Esvin's angina Resp normal respiratory effort and clear to auscultation bilaterally Cardio regular rate and regular rhythm Extremity normal to inspection Neuro oriented x3, CN's II-XII intact bilaterally and no sensory deficits noted Sensorium / Orientation: alert Motor Exam: strength 5/5 throughout Psych mental status grossly normal Skin no rashes or lesions noted General Skin Exam: Negative for jaundice or pallor MDM MDM MDM Narrative Medical decision making narrative: Patient arrived to the ER hypertensive but otherwise with stable vitals. We discussed that his constellation of symptoms could be related to a viral infection such as COVID influenza or RSV. Patient also could have bacterial or viral pharyngitis and with the asymmetric swelling of the tonsils potentially a peritonsillar abscess. I discussed with patient obtaining viral swab strep swab and a CT of the neck in order to assess for this. He states he has had the symptoms in the past and they improved with antibiotics. Therefore he does not want any intervention such as labs or CT scan but does request treatment. As he does have diffuse posterior pharynx erythema with unilateral tonsillar hypertrophy and mild trismus I do have concern that he is developing a early peritonsillar abscess. Therefore I will start the patient on clindamycin as he has an allergy to penicillin. I will provide Decadron in the ER and prednisone for home. The patient understands that if his symptoms or not improving over the next few days or they continue to worsen that he may need reevaluated in the ER for intervention such as CT scan laboratory studies and even surgical invention. Patient states he understands a plan of care and would still prefer just simple intervention at this time with medication and therefore he will be treated as documented above and is otherwise safe for discharge. History & Record Review Discussion w/independent historian: Patient Discharge Plan Triage Chief Complaint: Ear Problem ED Provider: Lc Orr Dx/Rx/DC Orders Clinical Impression: Pharyngitis, Hypertension, Otalgia Instructions: ED Peritonsillar Abscess, ED Pharyngitis, Strep (Presumed) Prescriptions: New clindamycin HCl [Cleocin HCl] 300 mg capsule 300 mg PO 4X/DAY 10 Days Qty: 40 0RF prednisone 20 mg tablet 40 mg PO DAILY 5 Days Qty: 10 0RF No Action ondansetron 4 mg tablet,disintegrating 4 mg PO Q6H PRN (Reason: nausea and vomiting) Qty: 20 0RF dicyclomine 20 mg tablet 20 mg PO TID Qty: 30 0RF Primary Care Provider: Care Physician,No Primary Referrals: Logan Hurley MD [Med Staff - Active Staff, Ear Nose Throat (ENT)] Care Physician,No Primary [Primary Care Provider, Medical] Activity Restrictions/Additional Instructions: Your history and exam is consistent with a developing right sided small peritonsillar abscess/pocket of infection. Take the antibiotic as directed to help resolve the infection and use the steroid to help reduce swelling and inflammation. It will typically take 2 to 3 days for symptom improvement. If you have worsening of symptoms or any further concerns and please return to the ER for repeat evaluation Print Language: Kazakh Disposition Disposition: Home, Self Care Discharge Date/Time: 03/19/25 04:19
[2025-03-19 04:15] VITALS: BP 154/84; PULSE 89; RESP 16; TEMP 37; O2SAT 100
== END 2025-03-19 04:19 | disposition home or self-care (01) ==
PROVIDERS: Emergency Provider Emergency Medicine; Visit Provider Emergency Medicine
DX: J02.9 Acute pharyngitis, unspecified (principal); H92.01 Otalgia, right ear; I10 Essential (primary) hypertension; F17.290 Nicotine dependence, other tobacco product, uncomplicated
CPT/HCPCS: 99284